=== PATIENT | female | born 1950 | race Asian ===

== ENCOUNTER → 2017-07-13 | Outpatient (CLI) | payer OTHER ==
--- NOTE | 2017-07-13 15:29 | CPEEG ---
[f rep st] ELECTROENCEPHALOGRAM DATE OF STUDY: 07/13/2017 INTERPRETATION: Normal EEG during wakefulness and sleep. There were no potentially epileptogenic ab normalities present during the recording. REPORT: This EEG contains 9 Hz alpha activity to the posterior head regions. There was prominent be ta frequency activity in the background. There was no abnormal activation at rest, during photic sti mulation or hyperventilation. The patient became drowsy and fell asleep during the study. There was no abnormal activation during drowsiness, sleep, or during times of arousal. /[id number]/MODL
== END ==
LOC: FCPNEURO 12:50
PROVIDERS: ATTEND Internal Medicine
DX: R56.9 Unspecified convulsions (principal)